=== PATIENT | male | born 1970 | race American Indian/Alaskan Native ===

== ENCOUNTER 2019-08-25 19:38 | Emergency (ER) | payer OTHER ==
[2019-08-25 19:46] VITALS: BP 145/95
[2019-08-25] MEDS ORDERED: IBUPROFEN 600 MG TAB PO ONE (21:17)
[2019-08-25] MEDS ORDERED: ACETAMINOPHEN 500 MG TAB PO ONE (21:17)
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
== END 2019-08-26 00:40 | disposition home or self-care (01) ==
LOC: ED 19:38
DX: S29.019A Strain of muscle and tendon of unspecified wall of thorax, initial encounter (principal); M54.2 Cervicalgia; R51 Headache; F17.200 Nicotine dependence, unspecified, uncomplicated; Z90.89 Acquired absence of other organs; E11.9 Type 2 diabetes mellitus without complications; V89.2XXA Person injured in unspecified motor-vehicle accident, traffic, initial encounter; Y93.89 Activity, other specified; Y92.410 Unspecified street and highway as the place of occurrence of the external cause; Y99.8 Other external cause status
CPT/HCPCS: 70450; 72125; 72128; 99283